=== PATIENT | male | born 1960 | race African-American/Black ===

== ENCOUNTER 2022-02-25 00:28 | Emergency (ER) | payer MEDICARE, OTHER ==
[~2022-02-25] VITALS: Ht 182.9 cm; Wt 88.5 kg
[~2022-02-25 00:28] MED LIST: GABA800T11 PO; HYDR-4384 PO; METF-442 PO; OLME1TAB34 PO
[2022-02-25 00:50] VITALS: BP 150/90
--- NOTE | 2022-02-25 00:58 | NUR ---
BIBS FOR S/I WITH NO PLAN. SEEKING VOLUNTARY ADMISSION TO [facility]. PATIENT ALERT AND ORIENTED X3. AMBULATORY WITH NON LABORED BREATHING IN BED 18 ALL BELONGINGS TAKEN AND PLACED IN LOCKER.
--- NOTE | 2022-02-25 01:05 | NUR ---
COVID SWAB DONE AND SENT TO LAB
--- NOTE | 2022-02-25 01:05 | NUR ---
URINE COLLECTED AND SENT TO LAB
[2022-02-25 01:43] LABS: BILIRUBIN,URINE NEGATIVE (NEGATIVE); COLOR,URINE YELLOW (YELLOW); LEUKOCYTE ESTERASE ,URINE NEGATIVE (NEGATIVE); NITRITE, URINE NEGATIVE (NEGATIVE); PH,URINE 5.5 (5.0-8.0); PROTEIN,URINE >=300 mg/dl (NEGATIVE); UGLUCOSE >=1000 mg/dL (NEGATIVE); UROBILINOGEN,URINE 0.2 EU/dL (0.2)
[2022-02-25 02:01] LABS: BASOPHILS % (AUTO) 0.8 % (0.0-2.0); EOSINOPHILS % (AUTO) 3.1 % (0.0-6.0); HEMATOCRIT 46 % (39-51); HEMOGLOBIN 15.1 g/dL (13.5-17.5); LYMPHOCYTES # (AUTO) 1.7 K/uL (0.8-4.8); LYMPHOCYTES % (AUTO) 30.2 % (20.0-44.0); MEAN CORPUSCULAR HGB CONC 33 g/dl (31.0-36.0); MEAN CORPUSCULAR VOLUME 90 fL (80-96); MONOCYTES # (AUTO) 0.7 K/uL (0.1-1.30); MONOCYTES % (AUTO) 11.8 % (2.0-12.0); NEUTROPHILS # (AUTO) 3.1 K/uL (1.8-8.9); NEUTROPHILS % (AUTO) 54.1 % (43.0-81.0); PLATELET COUNT (AUTO) 191 K/uL (150-450); RED BLOOD CELL COUNT(AUTO) 5.09 MIL/uL (4.5-6.0); WHITE BLOOD COUNT (AUTO) 5.7 K/uL (4.3-11.0)
[2022-02-25 02:01] LABS: BACTERIA,URINE Rare /HPF (None Seen); SQUAMOUS EPITHELIAL CELL,UR Few /HPF (None Seen); WBC,URINE 0-2 /HPF (0-3)
[2022-02-25 02:09] LABS: CALCIUM, SERUM 9.2 mg/dL (8.5-10.1); CARBON DIOXIDE 28 mmol/L (21-32); CHLORIDE 101 mmol/L (98-107); CREATININE 1.3 mg/dL (0.6-1.3); GLUCOSE 267 mg/dL (74-106); POTASSIUM 3.5 mmol/L (3.5-5.1); SODIUM SERUM 136 mmol/L (136-145); UREA NITROGEN, BLOOD 12 mg/dL (7-18)
[2022-02-25 02:15] LABS: ACETAMINOPHEN 0 ug/ml (10-30); ALANINE AMINOTRANSFERASE 19 U/L (12-78); ALBUMIN 3.7 g/dL (3.4-5.0); ALCOHOL, BLOOD < 3 mg/dL (0-0); ALKALINE PHOSPHATASE 78 U/L (46-116); ASPARTATE AMINOTRANSFERASE 20 U/L (15-37); BILIRUBIN,DIRECT 0.1 mg/dL (0.0-0.2); BILIRUBIN,TOTAL 0.4 mg/dL (0.2-1.0); TOTAL PROTEIN, SERUM 7.8 g/dL (6.4-8.2)
--- NOTE | 2022-02-25 03:35 | NUR ---
CLINICAL FAXED TO [facility] INTAKE
--- NOTE | 2022-02-25 04:11 | NUR ---
FOLLOWED UP WITH LAB REGARDING DRUG SCREEN RESULT.
--- NOTE | 2022-02-25 04:11 | NUR ---
Dory rowland in [facility] - 02/25/22 at 0411 by NEGRITO DAWIT
--- NOTE | 2022-02-25 06:00 | NUR ---
ACCEPTED AT [facility] UNDER DR. GIL NUMBER FOR REPORT [phone] UNIT 1 PER GT
--- NOTE | 2022-02-25 06:05 | NUR ---
REPORT GIVEN TO DARRIUS REED
--- NOTE | 2022-02-25 06:08 | NUR ---
[facility] FOR TRANSPORT [phone]
--- NOTE | 2022-02-25 08:46 | NUR ---
[facility] CALLED TO PUSH BACK SENDING PT @ 1300
--- NOTE | 2022-02-25 10:32 | NUR ---
PER MISTI PEGUERO BRENDA INTAKE NO RN AVAIALBLE UNTIL 2300 THAT IS WHEN PT CAN BE ACCEPTED.
--- NOTE | 2022-02-25 12:57 | NUR ---
PT ACCEPTED TO [facility] UNDER DR. SHARMA CALL [phone] [place].
== END 2022-02-25 13:10 ==
LOC: ER 00:50
DX: R45.851 Suicidal ideations (principal); F19.10 Other psychoactive substance abuse, uncomplicated; Z20.822 Contact with and (suspected) exposure to COVID-19; E11.65 Type 2 diabetes mellitus with hyperglycemia; Z79.84 Long term (current) use of oral hypoglycemic drugs; E11.42 Type 2 diabetes mellitus with diabetic polyneuropathy; I11.0 Hypertensive heart disease with heart failure; I50.9 Heart failure, unspecified
CPT/HCPCS: 36415; 80048-TC; 80076-TC; 81001; 85025-TC; C9803; G0480

== ENCOUNTER 2022-10-03 08:17 | Inpatient (IN) | payer MEDICARE, OTHER ==
[~2022-10-03] VITALS: Ht 182.9 cm; Wt 87.5 kg
[2022-10-03] MEDS ORDERED: ASPIRIN 325 MG TABLET PO ONE (08:30)
[2022-10-03] MEDS ORDERED: NITROGLYCERIN 0.4 MG/TAB BOTTLE SL ONE ×2 (08:30→10:00)
--- NOTE | 2022-10-03 08:43 | NUR ---
iv established. 20g L wrist
[2022-10-03] MEDS ORDERED: NITROGLYCERIN 0.4 MG/TAB BOTTLE ONE (08:44)
--- NOTE | 2022-10-03 08:44 | NUR ---
blood drawn and sent to lab
[2022-10-03] MEDS ORDERED: METOPROLOL TARTRATE INJ 5 MG/5 ML AMPUL ONE (08:51)
--- NOTE | 2022-10-03 08:55 | NUR ---
COVID SWAB COLLECTED AND CALLED LAB FOR WOOD FORM BUILDER.
[2022-10-03 09:00] LABS: CARBON DIOXIDE 23 mmol/L (21-32); CHLORIDE 103 mmol/L (98-107); GLUCOSE 272 mg/dL (74-106); POTASSIUM 4.8 mmol/L (3.5-5.1); SODIUM SERUM 135 mmol/L (136-145); UREA NITROGEN, BLOOD 10 mg/dL (7-18)
[2022-10-03] MEDS ORDERED: METOPROLOL TARTRATE INJ 5 MG/5 ML AMPUL IV ONE (09:00)
--- NOTE | 2022-10-03 09:00 | NUR ---
MOVE SHEET SUBMITTED.
--- NOTE | 2022-10-03 09:11 | NUR ---
xray at bedside
[2022-10-03] MEDS ORDERED: LORAZEPAM INJ 2 MG/ML VIAL ONE (09:13)
[2022-10-03] MEDS ORDERED: Medication Not On Formulary EA (Olmesartan Med/Amlodipine/Hctz (Tribenzor 40-10-25 Mg Ta PO SCH (09:30)
[2022-10-03] MEDS ORDERED: LORAZEPAM INJ 2 MG/ML VIAL IV ONE (09:30)
[2022-10-03 09:33] LABS: BASOPHILS % (AUTO) 0.4 % (0.0-2.0); EOSINOPHILS % (AUTO) 1.8 % (0.0-6.0); HEMATOCRIT 44 % (39-51); HEMOGLOBIN 14.2 g/dL (13.5-17.5); LYMPHOCYTES # (AUTO) 1.2 K/uL (0.8-4.8); LYMPHOCYTES % (AUTO) 26.1 % (20.0-44.0); MEAN CORPUSCULAR HGB CONC 33 g/dl (31.0-36.0); MEAN CORPUSCULAR VOLUME 92 fL (80-96); MONOCYTES # (AUTO) 0.5 K/uL (0.1-1.30); MONOCYTES % (AUTO) 10.6 % (2.0-12.0); NEUTROPHILS # (AUTO) 2.8 K/uL (1.8-8.9); NEUTROPHILS % (AUTO) 61.1 % (43.0-81.0); PLATELET COUNT (AUTO) 161 K/uL (150-450); RED BLOOD CELL COUNT(AUTO) 4.76 MIL/uL (4.5-6.0); WHITE BLOOD COUNT (AUTO) 4.5 K/uL (4.3-11.0)
--- NOTE | 2022-10-03 09:54 | NUR ---
patient taken to ct via lima
[2022-10-03] MEDS ORDERED: METOPROLOL TARTRATE INJ 5 MG/5 ML AMPUL IVP PRN (10:00)
[2022-10-03] MEDS ORDERED: IOHEXOL-350 100 ML VIAL IV ONE (10:05)
--- NOTE | 2022-10-03 10:21 | NUR ---
CTA PROCEDURE WELL TOLERATE BY THE PT. PT IS AAOX4, NOT IN RESPIRATORY DISTRESS, V/S STABLE, KEPT RESTED AND COMFORTABLE. WILL CONTINUE TO MONITOR. PT WHEELED BACK TO ER BED 12.
--- NOTE | 2022-10-03 10:31 | NUR ---
bed assigned = 313-2
[2022-10-03] MEDS ORDERED: AMLODIPINE BESYLATE 10 MG TABLET ONE (10:36)
[2022-10-03] MEDS: AMLODIPINE BESYLATE 10 MG TABLET PO SCH (10:49)
[2022-10-03] MEDS: LOSARTAN/HCTZ 50-12.5MG/ 1 EA TABLET PO SCH (11:00)
--- NOTE | 2022-10-03 11:02 | NUR ---
report given to Chris for continuation of care
--- NOTE | 2022-10-03 12:25 | NUR ---
[facility] CALLED SALES OPERATIONS LEAD PAGED.
[2022-10-03] MEDS ORDERED: ONDANSETRON HCL/PF 4 MG/2 ML VIAL IVP PRN (13:00)
[2022-10-03] MEDS: ENOXAPARIN SODIUM 40 MG/0.4 ML DISP.SYRIN SQ SCH ×2 (13:00→13:22)
[2022-10-03] MEDS ORDERED: DEXTROSE 50%-WATER 50 ML DISP.SYRIN IV PRN (13:00)
[2022-10-03] MEDS ORDERED: ACETAMINOPHEN 325 MG TABLET PO PRN (13:00)
--- NOTE | 2022-10-03 13:00 | NUR ---
patient transfered and admitted per acls protocol
[2022-10-03] MEDS: GABAPENTIN 400 MG CAPSULE PO SCH ×2 (13:21→16:41)
--- NOTE | 2022-10-03 13:30 | NUR ---
MECHANICS SUPERVISOR NOTE ADMITTED FROM ER, TRANSPORTED VIA GURNEY ACCOMPANIED BY 2 NURSES. PATIENT TRANSFERRED TO BED AND COMFORT MEASURES PROVIDED. PATIENT IS ALERT AND ORIENTED X 3. ABLE TO MAKE NEEDS KNOWN. PATIENT IS ON ROOM AIR WITH EQUAL AND UNLABORED BREATHING. NO SIGNS OF RESPIRATORY DISTRESS NOTED. NO COMPLAIN OF PAIN OR DISCOMFORT AT THIS TIME. PATIENT HOOKED TO TELE MONITOR READING SR AT 78BPM. COMFORT MEASURES PROVIDED. WITH IV ACCESS ON THE LEFT WRIST G 20, PATENT AND INTACT. PATIENT REFUSED BODY CHECK AND DENIES ANY SKIN ISSUES. HEALTH TEACHING DONE REGARDING ADMISSION AND ADMISSION ORDERS. SAFETY MEASURES PROVIDED WITH BED ON LOWEST LOCKED POSITION, ALARM ON AND CALL LIGHT WITHIN REACH AT ALL TIMES.
[2022-10-03] MEDS: BLOOD SUGAR DIAGNOSTIC 1 EACH STRIP IN SCH ×2 (17:38→21:23)
--- NOTE | 2022-10-03 19:03 | NUR ---
TELECOMMUNICATOR CLOSING NOTE PATIENT IS AWAKE, EATING DINNER; A/O X3 ABLE TO MAKE NEEDS KNOWN. ON ROOM AIR, TOLERATED WELL. NO SOB NOTED, BREATHING EVEN AND UNLABORED. NO S/S OF ACUTE DISTRESS NOTED. ON TELE MONITOR READING SR; HR-82BPM. DENIES ANY PAIN AT THIS TIME. WITH IV ACCESS ON LEFT WRIST G#20, PATENT AND INTACT. ALL DUE MEDS GIVEN. ALL NURSING NEEDS ATTENDED. SAFETY MEASURES IN PLACED; BED IN LOW AND LOCKED POSITION; CALL LIGHT AND TABLE WITHIN EASY REACH. WILL ENDORSE TO UNIVERSITY ADMINISTRATIVE ASSISTANT NURSE FOR CONTINUITY OF CARE.
--- NOTE | 2022-10-03 19:45 | NUR ---
PHYSICIAN GENERAL PRACTICE NOTES ST-101 ON TELE MONITOR,ON BED SLEEPING,AROUSABLE TO VERBAL STIMULI,BREATHING NORMAL,NOT IN ANY FORM OF DISTRESS.SALINE LOCK LEFT WRIST INTACT AND PATENT.DENIES CHEST PAIN AT THE MOMENT.ABLE TO WALK WITH ASSIST.CALL LIGHT IN REACH,NEEDS ANTICIPATED.
[2022-10-03 20:00] VITALS: BP 143/85
[2022-10-03] MEDS: ATORVASTATIN 10 MG TABLET PO SCH (21:23)
--- NOTE | 2022-10-03 21:30 | NUR ---
CREDIT RISK MODELER NOTES ACCU-CHECK BLOOD SUGAR CHECK 289MG/DL,COVERED WITH HUMULIN R 6 UNITS PER SLIDING SCALE,SNACKS PROVIDED AT BEDSIDE.
[2022-10-03] MEDS: INSULIN REGULAR, HUMAN 100 UNIT/ML 3 ML VIAL SQ PRN (21:54)
[2022-10-04] VITALS: BP_SYST 135; BP_DIAS 75; BP_DIAS 79
[2022-10-04 04:00] VITALS: BP 137/69
--- NOTE | 2022-10-04 05:45 | NUR ---
FRUIT OR NUT FARMER NOTES ACCU-CHECK BLOOD SUGAR CHECK 252MG/DL,COVERED WITH HUMULIN R 6 UNITS PER SLIDING SCALE.
[2022-10-04] MEDS: BLOOD SUGAR DIAGNOSTIC 1 EACH STRIP IN SCH ×4 (05:53→21:36)
[2022-10-04] MEDS: INSULIN REGULAR, HUMAN 100 UNIT/ML 3 ML VIAL SQ PRN ×4 (06:14→21:39)
[2022-10-04 07:00] VITALS: BP 152/105
--- NOTE | 2022-10-04 07:04 | NUR ---
HOT PACKER NOTES FAIRLY RESTED AT NIGHT,DENIES CHEST DISCOMFORTS,SALINE LOCK REMAINS PATENT.,FOR PSYCHE EVALUATION FOR DEPRESSION.SOCIAL SERVICE CONSULT FOR HOMELESSNESS.IN NO ACUTE DISTRESS,
[2022-10-04 07:25] LABS: BASOPHILS % (AUTO) 0.6 % (0.0-2.0); EOSINOPHILS % (AUTO) 2.7 % (0.0-6.0); HEMATOCRIT 42 % (39-51); LYMPHOCYTES # (AUTO) 1.2 K/uL (0.8-4.8); LYMPHOCYTES % (AUTO) 28.2 % (20.0-44.0); MEAN CORPUSCULAR HGB CONC 33 g/dl (31.0-36.0); MEAN CORPUSCULAR VOLUME 89 fL (80-96); MONOCYTES # (AUTO) 0.4 K/uL (0.1-1.30); NEUTROPHILS # (AUTO) 2.6 K/uL (1.8-8.9); NEUTROPHILS % (AUTO) 58.5 % (43.0-81.0); PLATELET COUNT (AUTO) 175 K/uL (150-450); RED BLOOD CELL COUNT(AUTO) 4.73 MIL/uL (4.5-6.0); WHITE BLOOD COUNT (AUTO) 4.4 K/uL (4.3-11.0)
--- NOTE | 2022-10-04 07:29 | NUR ---
BOILERMAKER MECHANIC OPENING NOTE Received pt in bed, awake. A/O x 3, able to make needs known. No c/o pain/discomfort at this time. On room air, tolerating well. on media monitor with current reading SR with PVCs-71. IV access in the left wrist #20g, sl. Safety measures implemented: bed in lowest locked position, side rails up x 3, call light and tray table within easy reach. Will continue to monitor.
[2022-10-04 07:36] LABS: CALCIUM, SERUM 9.3 mg/dL (8.5-10.1); CREATININE 1.1 mg/dL (0.6-1.3); MAGNESIUM 1.7 mg/dL (1.8-2.4); PHOSPHORUS 4.9 mg/dL (2.5-4.9); POTASSIUM 3.5 mmol/L (3.5-5.1)
[2022-10-04] MEDS: GABAPENTIN 400 MG CAPSULE PO SCH ×3 (08:42→16:45)
[2022-10-04] MEDS: ASPIRIN 81 MG TAB.CHEW PO SCH (08:42)
[2022-10-04] MEDS: AMLODIPINE BESYLATE 10 MG TABLET PO SCH (08:43)
[2022-10-04] MEDS: LOSARTAN/HCTZ 50-12.5MG/ 1 EA TABLET PO SCH (08:43)
[2022-10-04] MEDS: hydrALAZINE HCL 50 MG TABLET PO SCH ×3 (08:46→16:45)
[2022-10-04] MEDS: risperiDONE 1 MG TABLET PO SCH ×3 (09:00→16:45)
[2022-10-04] MEDS: NITROGLYCERIN 30 GM TUBE TP SCH ×3 (09:00→20:51)
--- NOTE | 2022-10-04 09:45 | NUR ---
RN NOTE Patient verbalized he has headache, Tylenol 650mg po prn given at 0940, will continue to monitor.
[2022-10-04] MEDS ORDERED: INSU100V3 SQ (11:00)
[2022-10-04] MEDS ORDERED: LOSA100T31 PO (11:00)
[2022-10-04] MEDS ORDERED: CARV6.252 PO (11:00)
[2022-10-04] MEDS ORDERED: AMLO-213 PO (11:00)
[2022-10-04] MEDS ORDERED: FURO40TA5 PO (11:00)
[2022-10-04] MEDS ORDERED: INSU10VI3 SQ (11:00)
[2022-10-04] MEDS ORDERED: ATOR20TA PO (11:00)
[2022-10-04] MEDS ORDERED: MIRT-90 PO (11:00)
[2022-10-04] MEDS ORDERED: OLAN10TA3 PO (11:00)
[2022-10-04] MEDS ORDERED: INSU100V7 SQ (11:00)
[2022-10-04] MEDS ORDERED: ASPI-1169 PO (11:00)
[2022-10-04] MEDS: ENOXAPARIN SODIUM 40 MG/0.4 ML DISP.SYRIN SQ SCH (12:34)
[2022-10-04 16:00] VITALS: BP 123/76
--- NOTE | 2022-10-04 18:49 | NUR ---
CLERICAL MANAGER CLOSING NOTE Pt resting in bed. A/O x 3, able to make needs known. No c/o pain/discomfort at this time. On room air, tolerating well. On monitoring engineer with current reading SR-90. IV access in the left wrist #20g, sl. Needs attended. Consented for cardiac cath tomorrow. Safety measures implemented: bed in lowest locked position, side rails up x 3, call light and tray table within easy reach. Will endorse genaro to acquisitions logistics analyst.
[2022-10-04 20:00] VITALS: BP_SYST 130; BP_DIAS 74; BP_DIAS 77
[2022-10-04] MEDS: ATORVASTATIN 10 MG TABLET PO SCH (20:52)
--- NOTE | 2022-10-04 21:03 | NUR ---
2100 patient in bed asleep easily awakened when name spoken he whispers when he is talking and will not look at the nurse he says"let me sleep" he puts his hands into fists and hits the bed took his lipitor and nitro oint patch . will continue to monitor and cluster all that needs to be done for him
--- NOTE | 2022-10-05 04:19 | NUR ---
CLOSING NURSES NOTES; alert and orientated x3 ambulates to the bathroom steady on his legs NPO for scheduled heart Cath in the AM consent and check list done
[2022-10-05] MEDS: BLOOD SUGAR DIAGNOSTIC 1 EACH STRIP IN SCH ×2 (05:49→12:01)
[2022-10-05] MEDS: INSULIN REGULAR, HUMAN 100 UNIT/ML 3 ML VIAL SQ PRN ×2 (05:57→13:29)
--- NOTE | 2022-10-05 07:20 | NUR ---
NEPHROLOGY NURSE OPENING NOTE Received pt in bed, awake. A/O x 3, able to make needs known. No c/o pain/discomfort at this time. On room air, tolerating well. on manager monitoring with current reading SR with PVCs-71. IV access in the left wrist #20g, sl. NPO maintained for cardiac cath and consent done , ambulatory , safety measures implemented: bed in lowest locked position, side rails up x 3, call light and tray table within easy reach. Will continue to monitor.
[2022-10-05 08:19] VITALS: BP_SYST 127; BP_SYST 140; BP_DIAS 63; BP_DIAS 85
--- NOTE | 2022-10-05 08:30 | NUR ---
RN NOTES PATIENT REFUSED TO HAVE THE CARDIAC CATH AND ON NPO AND HE SAID HE DOESNT WANT THE PROCEDURE TO BE DONE AND HE WANTS TO EAT , DR SHAHID AWARE AND OK , DR GRIMM AND JESIKA BARRAZA AWARE . ORDERED DIET AND TRUCKER AWARE ALSO .
[2022-10-05] MEDS ORDERED: ISOSORBIDE DINITRATE (20MG) 20 MG TABLET PO SCH (09:00)
[2022-10-05] MEDS: GABAPENTIN 400 MG CAPSULE PO SCH ×2 (10:16→13:27)
[2022-10-05] MEDS: ASPIRIN 81 MG TAB.CHEW PO SCH (10:16)
[2022-10-05] MEDS: AMLODIPINE BESYLATE 10 MG TABLET PO SCH (10:17)
[2022-10-05] MEDS: hydrALAZINE HCL 50 MG TABLET PO SCH ×2 (10:18→13:22)
[2022-10-05] MEDS: risperiDONE 1 MG TABLET PO SCH (10:23)
[2022-10-05] MEDS: LOSARTAN/HCTZ 50-12.5MG/ 1 EA TABLET PO SCH (10:23)
[2022-10-05] MEDS ORDERED: RISP1TAB7 PO (11:41)
[2022-10-05] MEDS ORDERED: ISOS20TA8 PO (11:41)
[2022-10-05 12:00] VITALS: BP 118/66
[2022-10-05 13:22] VITALS: BP 138/85
[2022-10-05] MEDS: ENOXAPARIN SODIUM 40 MG/0.4 ML DISP.SYRIN SQ SCH (13:27)
--- NOTE | 2022-10-05 16:00 | NUR ---
OPERATOR AND TRUCK DRIVEROFFSET DUPLICATING MACHINE OPERATOR NOTES PATIENT ON BED , A/OX3 , AND VERBALLY RESPONSIVE , ON ROOM AIR WITH NO SOB OR DISTRESS NOTED , NO C/ O OF PAIN AND DISCOMFORT, ALL DUE MEDS GIVEN ORDERED , PATIENT WAS SEEN BY DR BARRAZA AND WITH ORDER FOR DISCHARGE TO THE FACILITY AT [facility] , DISCHARGE PAPERS PREPARED AND INSTRUCTIONS PROVIDED TO THE PATIENT AND REPORT PROVIDED TO KITA RN AT FACILITY , ALL BELONGINGS WERE TAKEN AND FORM WAS SIGNED , SKIN IS INTACT , REPORT WAS GIVEN TO THE EMT AND PATIENT LEFT WITH NO C/O OF PAIN AND DISCOMFORT AND IN A STABLE CONDITION IV ACCES , PURCHASING EXPEDITOR , ID BADGE REMOVED , LEFT VIA GURNEY WITH EMT ,
== END 2022-10-05 15:51 | DRG 303 ==
LOC: ER 08:23 → TELE 10:35
PROVIDERS: ADMIT Nurse Practitioner Acute Care; ATTEND Nurse Practitioner Acute Care
DX: I25.10 Atherosclerotic heart disease of native coronary artery without angina pectoris (principal); E11.21 Type 2 diabetes mellitus with diabetic nephropathy; F32.A Depression, unspecified; Z98.1 Arthrodesis status; I10 Essential (primary) hypertension; Z79.4 Long term (current) use of insulin; Z79.82 Long term (current) use of aspirin; Z79.899 Other long term (current) drug therapy; E11.65 Type 2 diabetes mellitus with hyperglycemia; F29 Unspecified psychosis not due to a substance or known physiological condition; F19.90 Other psychoactive substance use, unspecified, uncomplicated; I25.2 Old myocardial infarction; Z95.5 Presence of coronary angioplasty implant and graft; Z91.148 Patient's other noncompliance with medication regimen for other reason; Z63.4 Disappearance and death of family member
CPT/HCPCS: 36415; 71045-TC; 75574; 80048-TC; 80061-TC; 82962-TC; 83735-TC; 83880; 84100-TC; 84484-TC; 85025-TC; 87081-TC; 93307-TC; 97112-TC; 97116-TC; C9803; G0378; J1650; J1815; J2060; J3490; Q9967

== ENCOUNTER 2022-10-27 06:55 | Inpatient (IN) | payer MEDICARE, OTHER ==
[~2022-10-27] VITALS: Ht 182.9 cm; Wt 90.7 kg
[~2022-10-27 06:55] MED LIST changes: +AMLO-213 PO; +ASPI-1169 PO; +ATOR20TA PO; +CARV6.252 PO; +FURO40TA5 PO; -HYDR-4384 PO; +INSU100V3 SQ; +INSU100V7 SQ; +INSU10VI3 SQ; +ISOS20TA8 PO; +LOSA100T31 PO; -METF-442 PO; -OLME1TAB34 PO; +RISP1TAB7 PO
--- NOTE | 2022-10-27 07:00 | NUR ---
BIBS FOR DEPRESSION. PATIENT WITH THOUGHTS OF HARMING SELF RECENTLY BUT NO SPECIFIC PLANS OR ATTEMPTS. A/O X 3, ABLE TO MAKE NEEDS KNOWN, TOLERATING WELL ON ROOM AIR.
--- NOTE | 2022-10-27 08:22 | NUR ---
COVID SWAB COLLECTED AND SENT TO LAB
[2022-10-27 09:22] LABS: BASOPHILS % (AUTO) 0.7 % (0.0-2.0); EOSINOPHILS % (AUTO) 4.4 % (0.0-6.0); HEMATOCRIT 48 % (39-51); HEMOGLOBIN 15.5 g/dL (13.5-17.5); LYMPHOCYTES # (AUTO) 1.1 K/uL (0.8-4.8); LYMPHOCYTES % (AUTO) 32.1 % (20.0-44.0); MEAN CORPUSCULAR HGB CONC 32 g/dl (31.0-36.0); MEAN CORPUSCULAR VOLUME 91 fL (80-96); MONOCYTES # (AUTO) 0.5 K/uL (0.1-1.30); MONOCYTES % (AUTO) 14.5 % (2.0-12.0); NEUTROPHILS # (AUTO) 1.7 K/uL (1.8-8.9); NEUTROPHILS % (AUTO) 48.3 % (43.0-81.0); PLATELET COUNT (AUTO) 171 K/uL (150-450); WHITE BLOOD COUNT (AUTO) 3.4 K/uL (4.3-11.0)
[2022-10-27 09:34] LABS: ALANINE AMINOTRANSFERASE 25 U/L (12-78); ALCOHOL, BLOOD < 3 mg/dL (0-0); ALKALINE PHOSPHATASE 68 U/L (46-116); ASPARTATE AMINOTRANSFERASE 27 U/L (15-37); BILIRUBIN,TOTAL 0.5 mg/dL (0.2-1.0); CALCIUM, SERUM 9.2 mg/dL (8.5-10.1); CARBON DIOXIDE 26 mmol/L (21-32); CHLORIDE 103 mmol/L (98-107); GLUCOSE 148 mg/dL (74-106); POTASSIUM 4.2 mmol/L (3.5-5.1); SODIUM SERUM 137 mmol/L (136-145); TOTAL PROTEIN, SERUM 7.6 g/dL (6.4-8.2); UREA NITROGEN, BLOOD 18 mg/dL (7-18)
[2022-10-27 09:44] LABS: BILIRUBIN,URINE NEGATIVE (NEGATIVE); COLOR,URINE YELLOW (YELLOW); LEUKOCYTE ESTERASE ,URINE NEGATIVE (NEGATIVE); NITRITE, URINE NEGATIVE (NEGATIVE); PROTEIN,URINE 3+ mg/dl (NEGATIVE); UGLUCOSE TRACE mg/dL (NEGATIVE)
[2022-10-27 09:47] LABS: BACTERIA,URINE Rare /HPF (None Seen); RBC,URINE 0-2 /HPF (0-2); SQUAMOUS EPITHELIAL CELL,UR Few /HPF (None Seen); WBC,URINE 0-2 /HPF (0-3)
[2022-10-27 10:17] LABS: ALBUMIN 3.7 g/dL (3.4-5.0)
[2022-10-27] MEDS ORDERED: ESCI10TA PO (11:38)
[2022-10-27] MEDS ORDERED: ISOS60TA72 PO (11:38)
[2022-10-27] MEDS ORDERED: FOLI0.4T6 PO (11:38)
[2022-10-27] MEDS ORDERED: GABA300C PO (11:38)
[2022-10-27] MEDS ORDERED: TEMA15CA PO (11:38)
[2022-10-27] MEDS ORDERED: PANT40TA49 PO (11:38)
[2022-10-27] MEDS ORDERED: METF-442 PO (11:38)
[2022-10-27] MEDS ORDERED: IBUP-1957 PO (12:13)
[2022-10-27] MEDS ORDERED: DICY20TA11 PO (12:13)
[2022-10-27] MEDS ORDERED: METH-647 PO (12:13)
[2022-10-27] MEDS ORDERED: ACET-868 PO (12:13)
[2022-10-27] MEDS ORDERED: MAGN400O6 PO (12:13)
[2022-10-27] MEDS ORDERED: ONDA4TAB5 PO (12:13)
[2022-10-27] MEDS ORDERED: MAG30ORA PO (12:13)
[2022-10-27] MEDS ORDERED: THIA100T68 PO (12:13)
[2022-10-27] MEDS ORDERED: LOPE2TAB25 PO (12:13)
[2022-10-27] MEDS ORDERED: INSU100V11 SQ (12:13)
[2022-10-27] MEDS ORDERED: DIAZ10TA4 PO (12:13)
--- NOTE | 2022-10-27 13:20 | NUR ---
olga, cuffer at bedside for eval.
--- NOTE | 2022-10-27 13:29 | NUR ---
BED ASSIGNED 213.A, ADMITTING AWARE
--- NOTE | 2022-10-27 13:55 | NUR ---
REPORT GIVEN TO DARRIUS QUEZADA
--- NOTE | 2022-10-27 15:15 | NUR ---
ADMITTED A 62 Y/O MALE FROM [facility]. ON 5150 HOLD FOR DTS ,PER HOLD PATIENT STATED "I LOST MY AND WANT TO ". . PATIENT ADMITTING DX. DEPRESSION AND MEDICAL HX OF HTN ,FIBROMYALGIA ,POLYNEUROPATHY ,HEART FAILURE , TYPE 2 DIABETES ,DIABETIC NEUROPATHY ,SPINAL STENOSIS ,ATHEROSCLEROTIC HEART DISEASE ,ANGINA PECTORIS ,GERD ,MIGRAINE ,INSOMNIA ,TINNITUS ,ALCOHOL ABUSE .POSITIVE FOR COCAINE ,CANNABINOID AND BENZO . NO AGITATION AT THIS TIME. HEAD TO TOE ASSESSMENT DONE. PATIENT UNABLE TO SIGN PAPER WORKS. NO SOB, NO ACUTE DISTRESS, BREATHING EVEN AND UNLABORED, NO S/S OF PAIN AND DISCOMFORT. PATIENT IS UNDER THE CARE OF DR. ARIAS AND DR. MARION . BELONGINGS COLLECTED FOR CONTRABAND CHECK. NOTIFIED TO RECONCILE MEDICATION. KEPT CLEAN, DRY AND COMFORTABLE. WILL CONTINUE TO MONITOR Q15 MNINS FOR SAFETY.
[2022-10-27] MEDS ORDERED: BLOOD SUGAR DIAGNOSTIC 1 EACH STRIP IN ONE (15:30)
[2022-10-27] MEDS ORDERED: MAGNESIUM HYDROXIDE 30 ML UDC PO PRN (15:30)
[2022-10-27] MEDS ORDERED: MAG HYDROX/AL HYDROX/SIMETH 30 ML UDC PO PRN (15:30)
--- NOTE | 2022-10-27 15:34 | NUR ---
PATIENT TRANSFERED TO 213-1, ALL CARE ENDORSED TO DARRIUS QUEZADA
[2022-10-27 15:58] VITALS: BP 156/88
--- NOTE | 2022-10-27 16:26 | NUR ---
Dr. Cummins made aware of the admission and with orders and Dr. Hunter made aware of the admission and made aware to reconcile meds and ordered accu check AC and HS and with mild regular insulin sliding scale.
[2022-10-27] MEDS ORDERED: DEXTROSE 50%-WATER 50 ML DISP.SYRIN IV PRN (16:30)
[2022-10-27] MEDS: BLOOD SUGAR DIAGNOSTIC 1 EACH STRIP IN SCH ×2 (17:35→21:19)
[2022-10-27] MEDS: INSULIN REGULAR, HUMAN 100 UNIT/ML 3 ML VIAL SQ PRN ×2 (17:36→21:20)
--- NOTE | 2022-10-27 19:10 | NUR ---
Rn opening notes Received Pt in the room. Pt is laying in bed comfortably. Pt is alert and orientedX3, calm, organized and cooperative. On room air. no SOB. No S/S of distress noted. Ambulates with a steady gait. Snacks is offered. safety precautions is maintained. will continue to monitor Q 15 mins checks for safety and behavior.
[2022-10-27] MEDS ORDERED: HYDR-3980 PO (19:22)
--- NOTE | 2022-10-27 19:30 | NUR ---
GPS RN NOTE, PATIENT NEEDS A MEDICATION RECONCILIATION. PAGED JULIO DIXON NP AND INFORMED HIM OF MY FINDINGS. JULIO DIXON NP ONLY GAVE AN ORDER FOR NORCO 10-325 1 TAB PO Q8HR PRN. ALL ORDERS NOTED AND CARRIED OUT WILL CONTINUE TO MONITOR THIS PATIENT WITH THE HELP OF STAFF.
[2022-10-27 20:00] VITALS: BP 156/111
--- NOTE | 2022-10-27 20:00 | NUR ---
RN notes Pt is having pain and requesting pain med. Pt also informed that Pt is taking [place] 10mg/1 tab at home. Informed and notify Dr. Clancy. ordered Norcon 10mg/1 tab/Q 8prn as ordered for pain. Charge nurse is aware and informed. order carried out.
[2022-10-27] MEDS: HYDROCODONE/APAP 10/325MG TABLET PO PRN (21:29)
--- NOTE | 2022-10-27 21:29 | NUR ---
RN notes Pt is compaining of neck and generalized pain. administered norco/1 tab/po as ordered for pain. VS is stable. safety precautions is maintained. Will continue to monitor.
[2022-10-27] MEDS: TEMAZEPAM 7.5 MG CAPSULE PO PRN (21:49)
--- NOTE | 2022-10-27 21:50 | NUR ---
RN notes Pt is having insomnia and requesting a sleeping pill. administered restoril/1 tab/po as ordered for sleeping. safety precautions is maintianed. will continue to monitor.
--- NOTE | 2022-10-28 06:40 | NUR ---
RN notes Pt refuses am labs. explained risks and benefits. Pt keep refusing and agitated easily. charge nurse is aware and informed.
[2022-10-28] MEDS: BLOOD SUGAR DIAGNOSTIC 1 EACH STRIP IN SCH ×4 (07:55→22:11)
[2022-10-28 08:00] VITALS: BP 151/92
[2022-10-28] MEDS: INSULIN REGULAR, HUMAN 100 UNIT/ML 3 ML VIAL SQ PRN ×4 (08:24→21:43)
[2022-10-28] MEDS: HYDROCODONE/APAP 10/325MG TABLET PO PRN (11:26)
--- NOTE | 2022-10-28 11:26 | NUR ---
RN NOTE PATIENT COMPLAINS OF GENERALIZED PAIN WITH PAIN SCALE OF 7/10. NORCO PRN ADMINISTERED. WILL CONTINUE TO MONITOR THE PATIENT.
[2022-10-28] MEDS: GABAPENTIN 300 MG CAPSULE PO SCH ×2 (12:09→16:24)
[2022-10-28] MEDS ORDERED: IBUPROFEN 800 MG TABLET PO PRN (15:30)
[2022-10-28] MEDS ORDERED: METHOCARBAMOL (500MG) 500 MG TABLET PO PRN (15:30)
[2022-10-28] MEDS: OLANZAPINE 5 MG TABLET PO SCH (15:41)
[2022-10-28] MEDS: ESCITALOPRAM OXALATE (10 MG) 10 MG TABLET PO SCH (15:41)
[2022-10-28 16:00] VITALS: BP 154/84
[2022-10-28] MEDS ORDERED: IBUPROFEN 400 MG TABLET PO PRN (16:00)
[2022-10-28] MEDS: ASPIRIN 81 MG TAB.CHEW PO SCH (16:10)
[2022-10-28] MEDS: LOSARTAN POTASSIUM 50 MG TABLET PO SCH (16:12)
[2022-10-28] MEDS: FOLIC ACID 1 MG TABLET PO SCH (16:13)
[2022-10-28] MEDS: ISOSORBIDE MONONITRATE (30MG) 30 MG TAB.SR.24H PO SCH (16:13)
[2022-10-28] MEDS: PANTOPRAZOLE 40 MG TABLET.DR PO SCH (16:14)
[2022-10-28] MEDS: THIAMINE HCL 100 MG TABLET PO SCH (16:14)
[2022-10-28] MEDS: AMLODIPINE BESYLATE 10 MG TABLET PO SCH (16:14)
[2022-10-28] MEDS: CARVEDILOL 6.25 MG TABLET PO SCH (16:15)
[2022-10-28 16:34] LABS: CREATININE 1.3 mg/dL (0.6-1.3)
[2022-10-28] MEDS ORDERED: GABAPENTIN 300 MG CAPSULE PO SCH (17:00)
[2022-10-28] MEDS: METFORMIN 500 MG TABLET PO SCH (17:00)
--- NOTE | 2022-10-28 18:43 | NUR ---
RN- CLOSING NOTES PATIENT AWAKE, RESTING IN BED, BREATHING EVEN AND NON LABORED WITH NO S/S OF DISTRESS. PATIENT IS COOPERATIVE, ANXIOUS, DEPRESSED, AND GUARDED. PATIENT IS MEDICATION COMPLIANT. DENIES SI/HI AT THIS TIME. WILL CONTINUE TO MONITOR Q 15 MINUTES FOR SAFETY AND BEHAVIOR.
[2022-10-28 20:00] VITALS: BP 150/74
[2022-10-28 20:36] VITALS: BP 150/74
[2022-10-28] MEDS: INSULIN GLARGINE, 100 UNIT/ML CARTRIDGE SQ SCH (21:44)
[2022-10-29] MEDS: BLOOD SUGAR DIAGNOSTIC 1 EACH STRIP IN SCH ×2 (07:58→12:13)
[2022-10-29 08:00] VITALS: BP 136/58
[2022-10-29] MEDS: LOSARTAN POTASSIUM 50 MG TABLET PO SCH (08:25)
[2022-10-29] MEDS: GABAPENTIN 300 MG CAPSULE PO SCH ×3 (08:26→16:27)
[2022-10-29] MEDS: CARVEDILOL 6.25 MG TABLET PO SCH ×2 (08:26→16:27)
[2022-10-29] MEDS: ISOSORBIDE MONONITRATE (30MG) 30 MG TAB.SR.24H PO SCH ×2 (08:26→08:29)
[2022-10-29] MEDS: ASPIRIN 81 MG TAB.CHEW PO SCH (08:27)
[2022-10-29] MEDS: FOLIC ACID 1 MG TABLET PO SCH (08:27)
[2022-10-29] MEDS: METFORMIN 500 MG TABLET PO SCH ×2 (08:27→16:27)
[2022-10-29] MEDS: THIAMINE HCL 100 MG TABLET PO SCH (08:27)
[2022-10-29] MEDS: PANTOPRAZOLE 40 MG TABLET.DR PO SCH (08:28)
[2022-10-29] MEDS: AMLODIPINE BESYLATE 10 MG TABLET PO SCH (08:28)
[2022-10-29] MEDS: OLANZAPINE 5 MG TABLET PO SCH (08:28)
[2022-10-29] MEDS: ESCITALOPRAM OXALATE (10 MG) 10 MG TABLET PO SCH (08:28)
[2022-10-29] MEDS: INSULIN REGULAR, HUMAN 100 UNIT/ML 3 ML VIAL SQ PRN ×2 (09:22→18:46)
[2022-10-29] MEDS: ACETAMINOPHEN 325 MG TABLET PO PRN (09:36)
[2022-10-29] MEDS: HYDROCODONE/APAP 10/325MG TABLET PO PRN ×3 (09:40→20:46)
--- NOTE | 2022-10-29 09:44 | NUR ---
NURSE NOTE: PT C/O PAIN AT THIS TIME. IBUPROPHEN ADMIN ORDERED. PT BLAYNE WELL. WILL CONT TO MONITOR.
--- NOTE | 2022-10-29 10:44 | NUR ---
NURSE NOTE: PT STATED THAT HE FEELS BETTER. WILL CONT TO MONITOR.
--- NOTE | 2022-10-29 12:13 | NUR ---
NURSE NOTE: PT C/O PAIN AT LEVEL 9/10. REQUESTED NORCO AT THIS TIME. NORCO ADMINISTERED ORDERED. PT BLAYNE WELL. WILL CONT TO MONITOR.
--- NOTE | 2022-10-29 13:13 | NUR ---
NURSE NOTE: PT SLEEPING AT THIS TIME. NORCO EFFECTIVE. NO SIGNS OF PAIN. WILL CONT TO MONITOR.
[2022-10-29] MEDS ORDERED: DEXTROSE 50%-WATER 50 ML DISP.SYRIN IV PRN (13:30)
[2022-10-29 16:00] VITALS: BP 153/80
[2022-10-29] MEDS: BLOOD SUGAR DIAGNOSTIC 1 EACH STRIP VI SCH ×2 (17:41→22:03)
--- NOTE | 2022-10-29 20:47 | NUR ---
RN NOTE PT COMPLAINED OF GENERAL PAIN 01/10. ADMINISTERED NORCO 10-325 MG FOR SEVERE PAIN ORDERED. ALL NEEDS MET AT THIS TIME.
[2022-10-29 21:56] VITALS: BP 141/92
[2022-10-29] MEDS: *INSULIN REGULAR(HUMULIN R)HUM 100 UNIT/ML VIAL SQ PRN (22:05)
[2022-10-29] MEDS: INSULIN GLARGINE, 100 UNIT/ML CARTRIDGE SQ SCH (22:06)
[2022-10-29] MEDS: TEMAZEPAM 7.5 MG CAPSULE PO PRN (22:10)
--- NOTE | 2022-10-29 22:17 | NUR ---
RN NOTE PT REQUESTED SLEEPING PILL. ADMINISTERED RESTORIL 7.5 MG FOR INSOMNIA ORDERED. MADE COMFORTABLE IN BED. ALL NEEDS MET AT THIS TIME.
--- NOTE | 2022-10-30 07:09 | NUR ---
GPS RN NOTE RECEIVED PATIENT SLEEPING IN BED, NO S/S OF DISTRESS OR DISCOMFORT. PATIENT RESTING WELL, NO BEHAVIOR NOTED AT THIS TIME, A/Ox3. NO S/S OF RESPIRATORY DISTRESS. WILL CONTINUE TO MONITOR.
[2022-10-30] MEDS: BLOOD SUGAR DIAGNOSTIC 1 EACH STRIP VI SCH ×4 (07:30→21:52)
[2022-10-30 08:00] VITALS: BP_SYST 118; BP_SYST 125; BP_DIAS 63; BP_DIAS 74
--- NOTE | 2022-10-30 08:00 | NUR ---
RN NOTE PATIENT REFUSED 0730 ACCUCHECK. RISKS AND BENEFITS EXPLAINED.
[2022-10-30] MEDS: THIAMINE HCL 100 MG TABLET PO SCH (08:37)
[2022-10-30] MEDS: METFORMIN 500 MG TABLET PO SCH ×2 (08:37→16:13)
[2022-10-30] MEDS: ASPIRIN 81 MG TAB.CHEW PO SCH (08:37)
[2022-10-30] MEDS: PANTOPRAZOLE 40 MG TABLET.DR PO SCH (08:37)
[2022-10-30] MEDS: FOLIC ACID 1 MG TABLET PO SCH (08:37)
[2022-10-30] MEDS: GABAPENTIN 300 MG CAPSULE PO SCH ×3 (08:37→16:13)
[2022-10-30] MEDS: ESCITALOPRAM OXALATE (10 MG) 10 MG TABLET PO SCH (08:37)
[2022-10-30] MEDS: CARVEDILOL 6.25 MG TABLET PO SCH ×2 (08:44→16:14)
[2022-10-30] MEDS: ISOSORBIDE MONONITRATE (30MG) 30 MG TAB.SR.24H PO SCH (08:45)
[2022-10-30] MEDS: AMLODIPINE BESYLATE 10 MG TABLET PO SCH (08:45)
[2022-10-30] MEDS: LOSARTAN POTASSIUM 50 MG TABLET PO SCH (08:45)
[2022-10-30] MEDS: HYDROCODONE/APAP 10/325MG TABLET PO PRN ×2 (08:49→21:52)
--- NOTE | 2022-10-30 09:00 | NUR ---
RN NOTE PATIENT REQUESTED PRN NARCO FOR PAIN, 01/10. ADMINISTERED.
--- NOTE | 2022-10-30 10:40 | NUR ---
MARTELL Clinical Note: Pt placed on a 5150 hold for danger to himself. Pt has been feeling depressed and has lost his . Pt is currently homeless. Pt will need placement. Pt does not have supportive contact. MARTELL will work with the MD and pt to help coordinate appropriate discharge.
--- NOTE | 2022-10-30 10:40 | NUR ---
MARTELL Initial Discharge Note: Pt is currently homeless. Pt will need placement. Pt does not have supportive contact. SW will work with the MD and pt to help coordinate appropriate discharge.
--- NOTE | 2022-10-30 12:11 | NUR ---
RN NOTE PATIENT ALLOWED ACCUCHECK, BUT REFUSED INSULIN COVERAGE.
[2022-10-30] MEDS: LORAZEPAM 0.5 MG TABLET PO PRN (13:43)
[2022-10-30 16:09] VITALS: BP 132/81
[2022-10-30] MEDS: INSULIN REGULAR, HUMAN 100 UNIT/ML 3 ML VIAL SQ PRN (17:36)
--- NOTE | 2022-10-30 18:50 | NUR ---
GPS RN CLOSING NOTE PATIENT AWAKE, IN DINING ROOM WATCHING TV, NO S/S OF DISTRESS OR DISCOMFORT. NO BEHAVIOR NOTED THROUGHOUT SHIFT, A/Ox3. NO S/S OF RESPIRATORY DISTRESS. WILL CONTINUE TO MONITOR.
--- NOTE | 2022-10-30 19:30 | NUR ---
RN OPENING NOTES RECEIVED PATIENT IN THE ACTIVITY ROOM WATCHING TV. PATIENT IS A/O TIMES 3. ABLE TO MAKE NEEDS KNOWN. NO PAIN NOTED. NO SOB NOTED. NO DISTRESS NOTED. ALL NEEDS ATTENDED. AMBULATORY AND BRP. NO SI/HI NOTED. COOPERATIVE. ALL SAFETY MEASURES IN PLACE. BED LOCKED IN THE LOWEST POSITION. TABLE IN EASY REACH. SIDE RAILS UP TIMES 2. WILL CONTINUE TO MONITOR FOR SAFETY EVERY 15 MINUTES.
[2022-10-30 20:16] VITALS: BP 143/83
[2022-10-30] MEDS: OLANZAPINE 5 MG TABLET PO SCH (21:42)
--- NOTE | 2022-10-30 21:52 | NUR ---
RN NOTES PRN NORCO 10/325 MG 1 CAP GIVEN PER PATIENT'S REQUEST AT 2152 FOR GENERALIZED PAIN. WILL ASSESS PAIN IN 1 HOUR.
[2022-10-30] MEDS: INSULIN GLARGINE, 100 UNIT/ML CARTRIDGE SQ SCH (21:53)
[2022-10-30] MEDS: *INSULIN REGULAR(HUMULIN R)HUM 100 UNIT/ML VIAL SQ PRN (21:55)
--- NOTE | 2022-10-30 22:00 | NUR ---
RN NOTES BLOOD SUGAR CHECKED FOR 2199 NOTED RESULT OF 180. INSULIN LANTUS GIVEN 22 UNITS PER ORDER. REGULAR INSULIN GIVEN 3 UNITS PER ORDER AND SLIDING SCALE.
[2022-10-30] MEDS: TEMAZEPAM 7.5 MG CAPSULE PO PRN (22:09)
--- NOTE | 2022-10-30 22:10 | NUR ---
RN NOTES PRN RESTORIL GIVEN AT 2209 PER PATIENT'S REQUEST FOR INSOMNIA. WILL REASSESS IN 1 HOUR.
[2022-10-31] MEDS: BLOOD SUGAR DIAGNOSTIC 1 EACH STRIP VI SCH ×4 (06:23→20:50)
[2022-10-31] MEDS: INSULIN REGULAR, HUMAN 100 UNIT/ML 3 ML VIAL SQ PRN ×3 (06:24→18:27)
--- NOTE | 2022-10-31 06:38 | NUR ---
RN NOTES BLOOD SUGAR CHECKED NOTED 199 RESULT. 3 UNITS INSULIN GIVEN.
--- NOTE | 2022-10-31 06:46 | NUR ---
RN CLOSING NOTES PATIENT IS AWAKE IN BED. PATIENT IS A/O TIMES 3. ABLE TO MAKE NEEDS KNOWN. NO PAIN NOTED. NO SOB NOTED. NO DISTRESS NOTED. ALL NEEDS ATTENDED. ALL DUE MEDS GIVEN ORDERED. AMBULATORY AND BRP. NO SI/HI NOTED. NO BEHAVIORAL ISSUE NOTED. COOPERATIVE. ALL SAFETY MEASURES IN PLACE. BED LOCKED IN THE LOWEST POSITION. TABLE IN EASY REACH. SIDE RAILS UP TIMES 2. WILL ENDORSE FOR PATITO.
[2022-10-31 08:00] VITALS: BP 158/95
[2022-10-31] MEDS: PANTOPRAZOLE 40 MG TABLET.DR PO SCH (08:10)
[2022-10-31] MEDS: METFORMIN 500 MG TABLET PO SCH ×2 (09:00→16:38)
[2022-10-31] MEDS: ESCITALOPRAM OXALATE (10 MG) 10 MG TABLET PO SCH (09:00)
[2022-10-31] MEDS: ISOSORBIDE MONONITRATE (30MG) 30 MG TAB.SR.24H PO SCH (09:00)
[2022-10-31] MEDS: AMLODIPINE BESYLATE 10 MG TABLET PO SCH (09:01)
[2022-10-31] MEDS: CARVEDILOL 6.25 MG TABLET PO SCH ×2 (09:01→16:38)
[2022-10-31] MEDS: GABAPENTIN 300 MG CAPSULE PO SCH ×3 (09:01→16:37)
[2022-10-31] MEDS: THIAMINE HCL 100 MG TABLET PO SCH (09:02)
[2022-10-31] MEDS: FOLIC ACID 1 MG TABLET PO SCH (09:02)
[2022-10-31] MEDS: ASPIRIN 81 MG TAB.CHEW PO SCH (09:02)
[2022-10-31] MEDS: LOSARTAN POTASSIUM 50 MG TABLET PO SCH (09:02)
--- NOTE | 2022-10-31 10:27 | NUR ---
SW Referral: MARTELL sent clinicals to [facility] to orlando Clarke ([phone]) for placement. SW sent clinicals to [facility], progress notes, and medication list.
--- NOTE | 2022-10-31 13:57 | NUR ---
SW Contact: [facility] ([phone]) who stated pt is accepted.
[2022-10-31 16:00] VITALS: BP 138/78
[2022-10-31] MEDS: HYDROCODONE/APAP 10/325MG TABLET PO PRN (19:55)
[2022-10-31 20:08] VITALS: BP 133/83
[2022-10-31] MEDS: OLANZAPINE 5 MG TABLET PO SCH (20:47)
--- NOTE | 2022-10-31 21:00 | NUR ---
RN NOTES PATIENT ZYPREXA 5MG MEDICATIONS ENTERED MANUALLY BECAUSE THE BARCODE DOES NOT WORK.CHARGE NURSED ().
[2022-10-31] MEDS: TEMAZEPAM 7.5 MG CAPSULE PO PRN (21:01)
[2022-10-31] MEDS: INSULIN GLARGINE, 100 UNIT/ML CARTRIDGE SQ SCH (21:10)
[2022-11-01] MEDS: BLOOD SUGAR DIAGNOSTIC 1 EACH STRIP VI SCH ×4 (07:56→21:38)
[2022-11-01 08:00] VITALS: BP 150/96
[2022-11-01] MEDS: PANTOPRAZOLE 40 MG TABLET.DR PO SCH (08:13)
[2022-11-01] MEDS: FOLIC ACID 1 MG TABLET PO SCH (08:29)
[2022-11-01] MEDS: ASPIRIN 81 MG TAB.CHEW PO SCH (08:29)
[2022-11-01] MEDS: ISOSORBIDE MONONITRATE (30MG) 30 MG TAB.SR.24H PO SCH (08:29)
[2022-11-01] MEDS: METFORMIN 500 MG TABLET PO SCH ×2 (08:29→16:45)
[2022-11-01] MEDS: ESCITALOPRAM OXALATE (10 MG) 10 MG TABLET PO SCH (08:29)
[2022-11-01] MEDS: THIAMINE HCL 100 MG TABLET PO SCH (08:29)
[2022-11-01] MEDS: GABAPENTIN 300 MG CAPSULE PO SCH ×3 (08:29→16:45)
[2022-11-01] MEDS: LOSARTAN POTASSIUM 50 MG TABLET PO SCH (08:30)
[2022-11-01] MEDS: CARVEDILOL 6.25 MG TABLET PO SCH ×2 (08:30→16:46)
[2022-11-01] MEDS: AMLODIPINE BESYLATE 10 MG TABLET PO SCH (08:30)
[2022-11-01] MEDS: INSULIN REGULAR, HUMAN 100 UNIT/ML 3 ML VIAL SQ PRN ×2 (12:41→22:01)
[2022-11-01] MEDS: HYDROCODONE/APAP 10/325MG TABLET PO PRN ×2 (13:17→23:53)
[2022-11-01 16:00] VITALS: BP 142/90
--- NOTE | 2022-11-01 17:44 | NUR ---
RN-NOTES PATIENT IS VISIBLE IN THE UNIT COMPLIANT WITH P.O MEDICATIONS. PATIENT ABLE TO MAKE NEEDS KNOWN TO THE STAFF AND ATTENDED GROUPS. AMBULATORY STEADY GAIT. ALL NEEDS ATTENDED AND ANTICIPATED. WILL CONT. MONITORING FOR SAFETY AND BEHAVIOR. WILL ENDORSE TO INCOMING SHIFT /NURSE FOR THE CONTINUITY OF CARE. Addendum: 11/01/22 at 1830 by ORALIA CASTRO RN PATIENT BS WAS 139MG/DL, REFUSED COVERAGE OF 2 UNITS REGULAR INSULIN. STATED" I'M OK IT'S NOT THAT MUCH, I DON'T WANT THE INSULIN". OFFERED X3
--- NOTE | 2022-11-01 20:35 | NUR ---
GPS RN NOTE, PATIENT VITAL SIGNS ARE FOLLOWS B/P 159/93, TEMP 97.9, RESPIRATIONS 16, PULSE 70, SPO2% 96%. PATIENT IS REQUESTING MEDICATION TO HELP LOWER HIS BLOOD PRESSURE AT THIS TIME. PAGED [facility] AND INFORMED CRYSTAL THOMPSON NP OF MY FINDINGS. CRYSTAL THOMPSON NP ORDERED CLONIDINE 0.1MG PO Q8HR PRN IF SYSTOLIC BLOOD PRESSURE IS GREATER THAT 155MMHG OR IF DIASTOLIC BLOOD PRESSURE IS GREATER THAN 100MMHG. ALL ORDERS NOTED AND CARRIED OUT. WILL CONTINUE TO MONITOR THIS PATIENT WITH THE HELP OF STAFF.
--- NOTE | 2022-11-01 20:45 | NUR ---
ACTIVITIES COUNSELOR NOTED RECEIVED PATIENT IN THE ACTIVITY ROOM WATCHING TV. PATIENT IS A/O TIMES 3. ABLE TO MAKE NEEDS KNOWN. NO PAIN NOTED. BREATHING NON-LABORED. NO DISTRESS NOTED. NO C/O PAIN OR DISCOMFORT AT THIS TIME. AMBULATORY AND BRP.DENIES NO SI/HI AT THIS TIME. PATIENT IS COOPERATIVE AND MED COMPLIANT.PATIENT C/O OF BLOOD PRESSURE 159/93.TEXTED DR SONG AND ORDERED CLONIDINE 0.5MG . ALL SAFETY MEASURES IN PLACE. BED LOCKED IN THE LOWEST POSITION. TABLE IN EASY REACH. SIDE RAILS UP TIMES 2. WILL CONTINUE TO MONITOR FOR EVERY 15 MINUTES FOR SAFETY AND BEHAVIOR.
[2022-11-01] MEDS: OLANZAPINE 5 MG TABLET PO SCH (21:24)
[2022-11-01] MEDS: CLONIDINE HCL 0.1 MG TABLET PO PRN (21:24)
[2022-11-01] MEDS: TEMAZEPAM 7.5 MG CAPSULE PO PRN (21:32)
--- NOTE | 2022-11-01 21:32 | NUR ---
NURSE NOTE: PT REQUESTED RESTORIL 7.5MG FOR SLEEPING. RESTORIL 7.5MG PO ADMINISTERED ORDERED. PT BLAYNE WELL. WILL CONT TO MONITOR.
[2022-11-01] MEDS: INSULIN GLARGINE, 100 UNIT/ML CARTRIDGE SQ SCH (21:44)
--- NOTE | 2022-11-01 23:55 | NUR ---
RN CLINICIAN NOTES PRN NORCO 10/325 MG 1 CAP GIVEN PER PATIENT'S REQUEST AT 2355 FOR GENERALIZED PAIN. WILL ASSESS PAIN IN 1 HOUR.
[2022-11-02] MEDS: *INSULIN REGULAR(HUMULIN R)HUM 100 UNIT/ML VIAL SQ PRN ×2 (00:03→22:12)
[2022-11-02] MEDS: BLOOD SUGAR DIAGNOSTIC 1 EACH STRIP VI SCH ×4 (07:43→22:13)
[2022-11-02 08:00] VITALS: BP 128/69
[2022-11-02] MEDS: PANTOPRAZOLE 40 MG TABLET.DR PO SCH (08:03)
[2022-11-02] MEDS: ASPIRIN 81 MG TAB.CHEW PO SCH (08:21)
[2022-11-02] MEDS: THIAMINE HCL 100 MG TABLET PO SCH (08:22)
[2022-11-02] MEDS: METFORMIN 500 MG TABLET PO SCH ×2 (08:22→16:16)
[2022-11-02] MEDS: ESCITALOPRAM OXALATE (10 MG) 10 MG TABLET PO SCH (08:22)
[2022-11-02] MEDS: GABAPENTIN 300 MG CAPSULE PO SCH ×3 (08:22→16:16)
[2022-11-02] MEDS: FOLIC ACID 1 MG TABLET PO SCH (08:22)
[2022-11-02] MEDS: ISOSORBIDE MONONITRATE (30MG) 30 MG TAB.SR.24H PO SCH (08:23)
[2022-11-02] MEDS: AMLODIPINE BESYLATE 10 MG TABLET PO SCH (08:23)
[2022-11-02] MEDS: LOSARTAN POTASSIUM 50 MG TABLET PO SCH (08:23)
[2022-11-02] MEDS: CARVEDILOL 6.25 MG TABLET PO SCH ×2 (08:24→16:16)
--- NOTE | 2022-11-02 12:28 | NUR ---
RN-NOTES PATIENT BS WAS 175 MG/DL, REFUSED COVERAGE OF 3 UNITS REGULAR INSULIN. STATED" I'M OK IT'S NOT THAT MUCH,NO INSULIN". OFFERED X3
[2022-11-02 16:00] VITALS: BP 129/71
[2022-11-02] MEDS: INSULIN REGULAR, HUMAN 100 UNIT/ML 3 ML VIAL SQ PRN (17:15)
[2022-11-02] MEDS: HYDROCODONE/APAP 10/325MG TABLET PO PRN (17:43)
--- NOTE | 2022-11-02 18:09 | NUR ---
RN-NOTES PATIENT IS VISIBLE IN THE UNIT COMPLIANT WITH P.O MEDICATIONS. EPISODE OF REFUSING INSULIN COVERAGE.PATIENT ABLE TO MAKE NEEDS KNOWN TO THE STAFF AND ATTENDED GROUPS. AMBULATORY STEADY GAIT. ALL NEEDS ATTENDED AND ANTICIPATED. WILL CONT. MONITORING FOR SAFETY AND BEHAVIOR. WILL ENDORSE TO INCOMING SHIFT /NURSE FOR THE CONTINUITY OF CARE.
--- NOTE | 2022-11-02 20:53 | NUR ---
BARBER INSTRUCTOR NOTED RECEIVED PATIENT ON HIS ROOM RESTING IN BED AWAKE . PATIENT IS A/O TIMES 3. ABLE TO MAKE NEEDS KNOWN. NO C/O AT THIS TIME. BREATHING NON-LABORED. NO DISTRESS NOTED. NO C/O PAIN OR DISCOMFORT AT THIS TIME. AMBULATORY AND BRP.DENIES NO SI/HI AT THIS TIME. PATIENT IS COOPERATIVE AND MED COMPLIANT . ALL SAFETY MEASURES IN PLACE. BED LOCKED IN THE LOWEST POSITION. TABLE IN EASY REACH. SIDE RAILS UP TIMES 2. WILL CONTINUE TO MONITOR FOR EVERY 15 MINUTES FOR SAFETY AND BEHAVIOR
[2022-11-02] MEDS: OLANZAPINE 5 MG TABLET PO SCH (21:20)
[2022-11-02] MEDS: TEMAZEPAM 7.5 MG CAPSULE PO PRN (21:32)
--- NOTE | 2022-11-02 21:42 | NUR ---
NURSE NOTE: PT REQUESTED RESTORIL 7.5MG FOR SLEEPING. RESTORIL 7.5MG PO ADMINISTERED ORDERED. PT BLAYNE WELL. WILL CONT TO MONITOR.
[2022-11-02] MEDS: INSULIN GLARGINE, 100 UNIT/ML CARTRIDGE SQ SCH (22:09)
[2022-11-03] MEDS: BLOOD SUGAR DIAGNOSTIC 1 EACH STRIP VI SCH ×4 (07:29→22:40)
[2022-11-03] MEDS: PANTOPRAZOLE 40 MG TABLET.DR PO SCH (07:49)
[2022-11-03 08:00] VITALS: BP 150/93
[2022-11-03] MEDS: GABAPENTIN 300 MG CAPSULE PO SCH ×3 (08:02→16:36)
[2022-11-03] MEDS: METFORMIN 500 MG TABLET PO SCH ×2 (08:02→16:36)
[2022-11-03] MEDS: THIAMINE HCL 100 MG TABLET PO SCH (08:02)
[2022-11-03] MEDS: ESCITALOPRAM OXALATE (10 MG) 10 MG TABLET PO SCH (08:03)
[2022-11-03] MEDS: LOSARTAN POTASSIUM 50 MG TABLET PO SCH (08:03)
[2022-11-03] MEDS: ASPIRIN 81 MG TAB.CHEW PO SCH (08:03)
[2022-11-03] MEDS: FOLIC ACID 1 MG TABLET PO SCH (08:03)
[2022-11-03] MEDS: ISOSORBIDE MONONITRATE (30MG) 30 MG TAB.SR.24H PO SCH (08:03)
[2022-11-03] MEDS: AMLODIPINE BESYLATE 10 MG TABLET PO SCH (08:03)
[2022-11-03] MEDS: CARVEDILOL 6.25 MG TABLET PO SCH ×2 (08:04→16:37)
[2022-11-03] MEDS: INSULIN REGULAR, HUMAN 100 UNIT/ML 3 ML VIAL SQ PRN ×3 (08:06→17:21)
[2022-11-03] MEDS: HYDROCODONE/APAP 10/325MG TABLET PO PRN (13:01)
[2022-11-03 16:00] VITALS: BP 156/83
--- NOTE | 2022-11-03 19:58 | NUR ---
CREAM MAKER NOTED RECEIVED PATIENT ON HIS ROOM RESTING IN BED AWAKE . PATIENT IS A/O X 3. ABLE TO MAKE NEEDS KNOWN. NO C/O AT THIS TIME. BREATHING NON-LABORED. NO DISTRESS NOTED. NO C/O PAIN OR DISCOMFORT AT THIS TIME. AMBULATORY AND BRP.DENIES NO SI/HI AT THIS TIME. PATIENT IS COOPERATIVE AND MED COMPLIANT . ALL SAFETY MEASURES IN PLACE. BED LOCKED IN THE LOWEST POSITION. TABLE IN EASY REACH. SIDE RAILS UP TIMES 2. WILL CONTINUE TO MONITOR FOR EVERY 15 MINUTES FOR SAFETY AND BEHAVIOR
[2022-11-03] MEDS ORDERED: VITAMINS A AND D 56.7 GM TUBE TP PRN (20:00)
[2022-11-03 20:48] VITALS: BP 159/89
[2022-11-03] MEDS: OLANZAPINE 5 MG TABLET PO SCH (21:09)
[2022-11-03] MEDS: TEMAZEPAM 7.5 MG CAPSULE PO PRN (21:10)
--- NOTE | 2022-11-03 21:11 | NUR ---
NURSE NOTE: PT REQUESTED RESTORIL 7.5MG FOR SLEEPING. RESTORIL 7.5MG PO ADMINISTERED ORDERED. PT BLAYNE WELL. WILL CONT TO MONITOR.
[2022-11-03] MEDS: INSULIN GLARGINE, 100 UNIT/ML CARTRIDGE SQ SCH (21:28)
[2022-11-03] MEDS: *INSULIN REGULAR(HUMULIN R)HUM 100 UNIT/ML VIAL SQ PRN (21:30)
[2022-11-03] MEDS: LORAZEPAM 0.5 MG TABLET PO PRN (23:35)
--- NOTE | 2022-11-03 23:37 | NUR ---
NOTE: PATIENT REQUESTED ATIVAN 0.5MG PO FOR ANXIETY.ADMINISTERED ATIVAN 0.5MG PRN PO.WILL CONTINUE TO MONITOR
[2022-11-04] MEDS: BLOOD SUGAR DIAGNOSTIC 1 EACH STRIP VI SCH ×4 (07:30→21:50)
[2022-11-04 08:00] VITALS: BP 158/91
[2022-11-04] MEDS: LOSARTAN POTASSIUM 50 MG TABLET PO SCH (09:17)
[2022-11-04] MEDS: ASPIRIN 81 MG TAB.CHEW PO SCH (09:17)
[2022-11-04] MEDS: FOLIC ACID 1 MG TABLET PO SCH (09:17)
[2022-11-04] MEDS: ISOSORBIDE MONONITRATE (30MG) 30 MG TAB.SR.24H PO SCH (09:17)
[2022-11-04] MEDS: THIAMINE HCL 100 MG TABLET PO SCH (09:18)
[2022-11-04] MEDS: AMLODIPINE BESYLATE 10 MG TABLET PO SCH (09:18)
[2022-11-04] MEDS: GABAPENTIN 300 MG CAPSULE PO SCH ×3 (09:18→17:05)
[2022-11-04] MEDS: METFORMIN 500 MG TABLET PO SCH ×2 (09:18→17:05)
[2022-11-04] MEDS: ESCITALOPRAM OXALATE (10 MG) 10 MG TABLET PO SCH (09:18)
[2022-11-04] MEDS: CARVEDILOL 6.25 MG TABLET PO SCH ×2 (09:18→17:06)
[2022-11-04] MEDS: CLOTRIMAZOLE 1% 15 GM TUBE TP SCH ×2 (09:20→17:07)
[2022-11-04] MEDS: PANTOPRAZOLE 40 MG TABLET.DR PO SCH (09:24)
[2022-11-04] MEDS: HYDROCODONE/APAP 10/325MG TABLET PO PRN (10:43)
[2022-11-04] MEDS: ACETAMINOPHEN 325 MG TABLET PO PRN (12:55)
[2022-11-04] MEDS: INSULIN REGULAR, HUMAN 100 UNIT/ML 3 ML VIAL SQ PRN ×2 (13:06→17:44)
[2022-11-04 16:00] VITALS: BP 131/75
[2022-11-04] MEDS: LORAZEPAM 0.5 MG TABLET PO PRN (19:13)
--- NOTE | 2022-11-04 19:27 | NUR ---
NURSE NOTE PATIENT EXPRESSED SOB AND AGITATION. ELEVATED HOB HIGH FOWLERS POSITIONS, VITALS BP134/58, P 80, O2 99% . PATIENT EXPRESSED HAVING TOO MUCH FLUID AND FEELING FLUID BUILD UP. RT WAS CALLED, NOT INTERVENTION BY RT. MAYBE POSSIBLE ANXIETY EPISODE. DR. BRICE WAS NOTIFIED. NO NEW ORDERS. PATIENT WAS GIVEN PRN ATIVAN. PATIENT IS NOW IN ACTIVITY ROOM, STATING HE IS FEELING BETTER.
[2022-11-04 20:13] VITALS: BP 134/58
[2022-11-04] MEDS: BENZONATATE 100 MG CAPSULE PO PRN (20:13)
--- NOTE | 2022-11-04 20:13 | NUR ---
RN NOTE PT COMPLAINING OF COUGH. ADMINISTERED BENZONATATE FOR COUGH ORDERED. ALL NEEDS MET AT THIS TIME.
[2022-11-04] MEDS: OLANZAPINE 5 MG TABLET PO SCH (21:49)
[2022-11-04] MEDS: *INSULIN REGULAR(HUMULIN R)HUM 100 UNIT/ML VIAL SQ PRN (21:50)
[2022-11-04] MEDS: INSULIN GLARGINE, 100 UNIT/ML CARTRIDGE SQ SCH (21:51)
[2022-11-04] MEDS: TEMAZEPAM 7.5 MG CAPSULE PO PRN (22:02)
--- NOTE | 2022-11-04 22:03 | NUR ---
RN NOTE PT REQUESTED SLEEPING PILL. ADMINISTERED RESTORIL 7.5 MG FOR INSOMNIA. ALL NEEDS MET AT THIS TIME.
--- NOTE | 2022-11-04 22:08 | NUR ---
RN NOTE PT STATED HE HAS A HISTORY OF CHF BUT IS NOT CURRENTLY TAKING ANY MEDICATION. INFORMED INCOME TAX RETURN PREPARER DONNA SINCE PATIENT IS SHOWING MILD SIGNS OF CHF. VITALS STABLE AT THIS TIME. ADINA THOMPSON ORDERED BNP IN THE MORNING. ORDER NOTED AND CARRIED OUT. CHARGE NURSE BLANCA ANGEL.
[2022-11-04] MEDS: MENTHOL/CETYLPYRD (CEPACOL) 1 LOZ LOZENGE PO PRN (23:28)
--- NOTE | 2022-11-04 23:29 | NUR ---
RN NOTE PT COMPLAINING OF SORE THROAT DUE TO COUGHING. ADMINISTERED CEPACOL ORDERED. ALL NEEDS MET AT THIS TIME.
[2022-11-05] MEDS: BLOOD SUGAR DIAGNOSTIC 1 EACH STRIP VI SCH ×4 (07:30→21:40)
[2022-11-05] MEDS: PANTOPRAZOLE 40 MG TABLET.DR PO SCH (07:41)
[2022-11-05 08:00] VITALS: BP 158/77
[2022-11-05] MEDS: ASPIRIN 81 MG TAB.CHEW PO SCH (08:43)
[2022-11-05] MEDS: ISOSORBIDE MONONITRATE (30MG) 30 MG TAB.SR.24H PO SCH (08:43)
[2022-11-05] MEDS: GABAPENTIN 300 MG CAPSULE PO SCH ×3 (08:43→17:28)
[2022-11-05] MEDS: THIAMINE HCL 100 MG TABLET PO SCH (08:43)
[2022-11-05] MEDS: ESCITALOPRAM OXALATE (10 MG) 10 MG TABLET PO SCH (08:44)
[2022-11-05] MEDS: CARVEDILOL 6.25 MG TABLET PO SCH ×2 (08:44→17:28)
[2022-11-05] MEDS: METFORMIN 500 MG TABLET PO SCH ×2 (08:44→17:28)
[2022-11-05] MEDS: AMLODIPINE BESYLATE 10 MG TABLET PO SCH (08:44)
[2022-11-05] MEDS: FOLIC ACID 1 MG TABLET PO SCH (08:44)
[2022-11-05] MEDS: LOSARTAN POTASSIUM 50 MG TABLET PO SCH (08:45)
[2022-11-05] MEDS: CLOTRIMAZOLE 1% 15 GM TUBE TP SCH ×2 (08:51→17:00)
[2022-11-05] MEDS: BENZONATATE 100 MG CAPSULE PO PRN (09:14)
--- NOTE | 2022-11-05 09:15 | NUR ---
RN- NOTES TESSALON PERLE ADMINISTERED DUE TO PATIENT COMPLAINTS OF COUGH.
[2022-11-05] MEDS: MENTHOL/CETYLPYRD (CEPACOL) 1 LOZ LOZENGE PO PRN (10:30)
--- NOTE | 2022-11-05 10:30 | NUR ---
Court Hearing: Patient's court hearing for 2910 was today and it was upheld for GD.
--- NOTE | 2022-11-05 10:30 | NUR ---
Court Notification: Patient does not have any supportive contact to notify of 3040 hearing.
--- NOTE | 2022-11-05 10:31 | NUR ---
RN- NOTES CEPACOL LOZENGE ADMINISTERED DUE TO PATIENT CONTINUED COUGHING.
[2022-11-05] MEDS: ACETAMINOPHEN 325 MG TABLET PO PRN (11:34)
[2022-11-05] MEDS: INSULIN REGULAR, HUMAN 100 UNIT/ML 3 ML VIAL SQ PRN ×3 (11:35→21:44)
--- NOTE | 2022-11-05 11:36 | NUR ---
RN- NOTES TYLENOL ADMINISTERED DUE TO PATIENT COMPLAINTS OF HEADACHE.
[2022-11-05] MEDS: GUAIFENESIN/D-METHORPHAN HB 5 ML UDC PO PRN ×2 (13:06→20:20)
--- NOTE | 2022-11-05 13:06 | NUR ---
RN- NOTES ROBITUSSIN ADMINISTERED DUE TO PATIENT'S CONTINUED COUGH AND SORE THROAT.
[2022-11-05 16:00] VITALS: BP 149/76
--- NOTE | 2022-11-05 19:21 | NUR ---
RN- CLOSING NOTES PATIENT AWAKE, RESTING IN BED, BREATHING EVEN AND NON LABORED WITH NO S/S OF DISTRESS. PATIENT IS COOPERATIVE, GUARDED, ANXIOUS, ISOLATIVE, AND RESTLESS. PATIENT IS COMPLAINING OF COUGH, MD AWARE, PRN MEDICATIONS GIVEN. PATIENT IS MEDICATION COMPLIANT. DENIES SI/HI AT THIS TIME. WILL CONTINUE TO MONITOR Q 15 MINUTES FOR SAFETY AND BEHAVIOR.
[2022-11-05 20:00] VITALS: BP 161/81
[2022-11-05] MEDS: CLONIDINE HCL 0.1 MG TABLET PO PRN (20:20)
--- NOTE | 2022-11-05 20:20 | NUR ---
RN NOTE PT'S BP IS 161/81. PRN MEDICATION, CATAPRES 0.1 MG, ADMINISTERED PER MD ORDER.
--- NOTE | 2022-11-05 20:20 | NUR ---
RN NOTE PT COUGHS AND REQUESTED FOR COUGH SYRUP. PRN MEDICATION, ROBITUSSIN 5 ML, ADMINISTERED PER MD ORDER.
[2022-11-05] MEDS: HYDROCODONE/APAP 10/325MG TABLET PO PRN (21:20)
--- NOTE | 2022-11-05 21:20 | NUR ---
RN NOTE PT STATED THAT HE WAS HAVING PAIN AT HIS ABD. HIS PAIN LEVEL IS 8/10 ON A 0-10 PAIN SCALE. PRN MEDICATION, NORCO 10-325, ADMINISTERED PER MD ORDER.
[2022-11-05] MEDS: OLANZAPINE 5 MG TABLET PO SCH (21:21)
[2022-11-05] MEDS: TEMAZEPAM 7.5 MG CAPSULE PO PRN (21:27)
--- NOTE | 2022-11-05 21:30 | NUR ---
RN NOTE PT REQUESTED FOR SLEEPING PILL. PRN MEDICATION, RESTORIL 7.5 MG, ADMINISTERED PER MD ORDER.
[2022-11-05] MEDS: INSULIN GLARGINE, 100 UNIT/ML CARTRIDGE SQ SCH (21:42)
[2022-11-06] MEDS: GUAIFENESIN/D-METHORPHAN HB 5 ML UDC PO PRN ×3 (04:23→17:54)
--- NOTE | 2022-11-06 04:24 | NUR ---
RN NOTE PT COUGHS AND REQUESTED FOR COUGH SYRUP. PRN MEDICATION, ROBITUSSIN 5 ML, ADMINISTERED PER MD ORDER.
[2022-11-06] MEDS: BLOOD SUGAR DIAGNOSTIC 1 EACH STRIP VI SCH ×4 (07:57→21:09)
--- NOTE | 2022-11-06 07:58 | NUR ---
RN- NOTES PATIENT REFUSED INSULIN COVERAGE, BLOOD GLUCOSE NOTED AT 141, EDUCATION AND ENCOURAGEMENT GIVEN X3, PATIENT CONTINUES TO REFUSE.
[2022-11-06 08:00] VITALS: BP 145/93
[2022-11-06] MEDS: PANTOPRAZOLE 40 MG TABLET.DR PO SCH (08:01)
[2022-11-06] MEDS: METFORMIN 500 MG TABLET PO SCH ×2 (09:00→16:09)
[2022-11-06] MEDS: THIAMINE HCL 100 MG TABLET PO SCH (09:22)
[2022-11-06] MEDS: LOSARTAN POTASSIUM 50 MG TABLET PO SCH (09:22)
[2022-11-06] MEDS: AMLODIPINE BESYLATE 10 MG TABLET PO SCH (09:23)
[2022-11-06] MEDS: FOLIC ACID 1 MG TABLET PO SCH (09:23)
[2022-11-06] MEDS: ASPIRIN 81 MG TAB.CHEW PO SCH (09:23)
[2022-11-06] MEDS: ISOSORBIDE MONONITRATE (30MG) 30 MG TAB.SR.24H PO SCH (09:23)
[2022-11-06] MEDS: ESCITALOPRAM OXALATE (10 MG) 10 MG TABLET PO SCH (09:23)
[2022-11-06] MEDS: CARVEDILOL 6.25 MG TABLET PO SCH ×2 (09:23→16:10)
[2022-11-06] MEDS: CLOTRIMAZOLE 1% 15 GM TUBE TP SCH ×2 (09:24→17:00)
[2022-11-06] MEDS: GABAPENTIN 300 MG CAPSULE PO SCH ×3 (09:30→16:09)
--- NOTE | 2022-11-06 09:57 | NUR ---
RN- NOTES METFORMIN 1000MG HELD DUE TO MEDICATION NOT AVAILABLE, PHARMACY NOTIFIED AND AWARE.
[2022-11-06] MEDS: METFORMIN 500 MG TABLET PO ONE ×2 (10:52→10:59)
--- NOTE | 2022-11-06 10:53 | NUR ---
RN- NOTES METFORMIN 1000MG HELD DUE TO MEDICATION NOT AVAILABLE, PHARMACY NOTIFIED AND AWARE. Addendum: 11/06/22 at 1059 by BERTRAND BOBBY RN MEDICATION OBTAINED AND ADMINISTERED.
[2022-11-06] MEDS: INSULIN REGULAR, HUMAN 100 UNIT/ML 3 ML VIAL SQ PRN ×2 (12:34→16:52)
[2022-11-06 16:05] VITALS: BP 135/72
--- NOTE | 2022-11-06 17:54 | NUR ---
RN-CO: GUAIFENESIN5 ML GIVEN FOR C/O MILD COUGH.
--- NOTE | 2022-11-06 20:00 | NUR ---
RN : - RECEIVED PATIENT IN THE ACTIVITY ROOM WATCHING TV. PATIENT IS A/O TIMES 3. ABLE TO MAKE NEEDS KNOWN. NO PAIN NOTED. BREATHING NON-LABORED. NO DISTRESS NOTED. NO C/O PAIN OR DISCOMFORT AT THIS TIME. AMBULATORY AND BRP.DENIES NO SI/HI AT THIS TIME. PATIENT IS COOPERATIVE AND MED COMPLIANT.ALL SAFETY MEASURES IN PLACES. WILL CONTINUE TO MONITOR FOR EVERY 15 MINUTES FOR SAFETY AND BEHAVIOR.
[2022-11-06 20:57] VITALS: BP 154/87
[2022-11-06] MEDS: INSULIN GLARGINE, 100 UNIT/ML CARTRIDGE SQ SCH (21:11)
[2022-11-06] MEDS: OLANZAPINE 5 MG TABLET PO SCH (21:12)
[2022-11-06] MEDS: TEMAZEPAM 7.5 MG CAPSULE PO PRN (21:13)
--- NOTE | 2022-11-06 21:13 | NUR ---
RN NOTE :- PT REQUESTED FOR SLEEPING PILL. PRN MEDICATION, RESTORIL 7.5 MG PO, ADMINISTERED PER MD ORDER.
--- NOTE | 2022-11-07 06:21 | NUR ---
RN NOTE :- PATIENT ASLEEP, RESTING IN BED, BREATHING EVEN AND NON LABORED WITH NO S/S OF DISTRESS. COVID TEST DONE . PATIENT IS COOPERATIVE, GUARDED, ANXIOUS, ISOLATIVE, AND RESTLESS. PATIENT IS MEDICATION COMPLIANT. DENIES SI/HI AT THIS TIME. BED IS LOWER POSITION AND WILL CONTINUE TO MONITOR Q 15 MINUTES FOR SAFETY AND BEHAVIOR.
[2022-11-07] MEDS: BLOOD SUGAR DIAGNOSTIC 1 EACH STRIP VI SCH ×2 (07:30→11:12)
[2022-11-07] MEDS: PANTOPRAZOLE 40 MG TABLET.DR PO SCH (07:51)
[2022-11-07] MEDS: GUAIFENESIN/D-METHORPHAN HB 5 ML UDC PO PRN (07:52)
[2022-11-07 08:00] VITALS: BP 149/79
--- NOTE | 2022-11-07 08:11 | NUR ---
Discharge Note: Patient will be discharged to [facility] to [facility] [address] [place] [address]; ([phone]) via Ambulance transportation at 2PM. [employer] spoke with Micheline, Manager Plan at [facility] ([phone]) who stated patient will be accepted at facility today. Patient is alert and oriented x2. Patient denies any suicidal or homicidal ideations. Patient is aware and agreeable with discharge plans. Patient does not have any family members at this time. Patient will continue to follow-up with (psychiatrist) Dr. Cummins [address] [facility] [address], [place] [address]; ([phone]) and (beer cooler) Dr. Hunter [address] [facility] [address], [place] [address]; ([phone]). Patient presents with euthymic mood and congruent affect. Patient refused to sign the homeless waiver upon discharge and a copy was placed in the chart. Homeless resources were provided and include [address] information line for shelters and homeless resources. A copy of all resources given to patient was also placed in the chart.
[2022-11-07] MEDS: ASPIRIN 81 MG TAB.CHEW PO SCH (08:27)
[2022-11-07] MEDS: CARVEDILOL 6.25 MG TABLET PO SCH (08:27)
[2022-11-07] MEDS: METFORMIN 500 MG TABLET PO SCH (08:27)
[2022-11-07] MEDS: ESCITALOPRAM OXALATE (10 MG) 10 MG TABLET PO SCH (08:27)
[2022-11-07] MEDS: GABAPENTIN 300 MG CAPSULE PO SCH ×2 (08:28→12:04)
[2022-11-07] MEDS: AMLODIPINE BESYLATE 10 MG TABLET PO SCH (08:28)
[2022-11-07] MEDS: LOSARTAN POTASSIUM 50 MG TABLET PO SCH (08:28)
[2022-11-07] MEDS: THIAMINE HCL 100 MG TABLET PO SCH (08:28)
[2022-11-07] MEDS: FOLIC ACID 1 MG TABLET PO SCH (08:28)
[2022-11-07 08:29] VITALS: BP 149/79
[2022-11-07] MEDS: ISOSORBIDE MONONITRATE (30MG) 30 MG TAB.SR.24H PO SCH (08:29)
[2022-11-07] MEDS: CLOTRIMAZOLE 1% 15 GM TUBE TP SCH (09:00)
--- NOTE | 2022-11-07 09:18 | NUR ---
RN-CO : PATIENT ATE HIS BREAKFAST AND TOOK ALL HIS MEDICATIONS. HE REMAINS CALM AND COOPERATIVE TO CARE. HE PARTICIPATES IN GROUP ACTIVITIES. HE DENIED SUICIDAL, HOMICIDAL AND COMMAND HALLUCINATIONS. HE STATED , HE DON'T HEAR VOICES. NO ACUTE DISTRESS NOTED. DR MARION ORDERED TO DISCONTINUE HOLD AND DICHARGE PATIENT TO [facility], NOTED. PT IS AWARE OF HIS DISCHARGE AND AGGREABLE TO THE PLACE WHERE HE IS GOING.
--- NOTE | 2022-11-07 10:58 | NUR ---
RN-CO: DR Thakkar medically cleared the patient for discharge and ordered to continue his current medications. Discharge papers were discussed to the patient , he verbalized understanding and signed all discharge papers. Report will be given to receiving RN in the facility .
[2022-11-07] MEDS: INSULIN REGULAR, HUMAN 100 UNIT/ML 3 ML VIAL SQ PRN (11:14)
--- NOTE | 2022-11-07 11:52 | NUR ---
RN-CO: Report was given to " Altaf" DARRIUS. All belongings will be given back to the patient.
--- NOTE | 2022-11-07 14:32 | NUR ---
RN-CO: Patient was picked up by ambulance, all belongings was given back to him.
== END 2022-11-07 14:34 | DRG 885 ==
LOC: ER 06:56 → GPS 14:58
PROVIDERS: ADMIT Psychiatry & Neurology Psychosomatic Medicine; ATTEND Nurse Practitioner Acute Care
DX: F25.0 Schizoaffective disorder, bipolar type (principal); I10 Essential (primary) hypertension; E11.9 Type 2 diabetes mellitus without complications; Z79.4 Long term (current) use of insulin; Z79.82 Long term (current) use of aspirin; Z91.010 Allergy to peanuts; Z98.1 Arthrodesis status; Z20.822 Contact with and (suspected) exposure to COVID-19; F32.9 Major depressive disorder, single episode, unspecified; F29 Unspecified psychosis not due to a substance or known physiological condition; Z73.6 Limitation of activities due to disability; F12.10 Cannabis abuse, uncomplicated; F13.10 Sedative, hypnotic or anxiolytic abuse, uncomplicated; Z79.899 Other long term (current) drug therapy; F03.90 Unspecified dementia, unspecified severity, without behavioral disturbance, psychotic disturbance, mood disturbance, and anxiety; Z59.00 Homelessness unspecified
CPT/HCPCS: 36415; 80048-TC; 80076-TC; 81001; 82565-TC; 82962-TC; 83880; 85025-TC; 87081-TC; C9803; G0480; J1815

== ENCOUNTER 2024-10-20 07:34 | Inpatient (IN) | payer MEDICARE, OTHER ==
[~2024-10-20] VITALS: Ht 182.9 cm; Wt 85.3 kg
[~2024-10-20 07:34] MED LIST changes: -ASPI-1169 PO; +ASPI-1420 PO; -ATOR20TA PO; +BUPR300T52 PO; +GABA300C PO; -GABA800T11 PO; +GLIP10TA11 PO; +INSU100V11 SQ; -INSU100V3 SQ; -INSU10VI3 SQ; -ISOS20TA8 PO; +ISOS60TA72 PO; +METF-442 PO; +MIRT-90 PO; +RISP0.2515 PO; -RISP1TAB7 PO
[2024-10-20 07:50] VITALS: O2SAT 97
[2024-10-20] MEDS ORDERED: MAGNESIUM HYDROXIDE 30 ML UDC PO PRN (09:30)
[2024-10-20] MEDS ORDERED: CARV12.52 PO (09:31)
[2024-10-20] MEDS ORDERED: GABA600T12 PO (09:31)
[2024-10-20] MEDS ORDERED: TRAZ-182 PO (09:31)
[2024-10-20] MEDS ORDERED: HYDR-3980 PO (09:31)
[2024-10-20] MEDS ORDERED: ARIP20TA4 PO (09:31)
[2024-10-20] MEDS ORDERED: ATOR20TA PO (09:31)
[2024-10-20] MEDS ORDERED: METO25TA4 PO (09:31)
[2024-10-20] MEDS ORDERED: EMPA10TA PO (09:31)
[2024-10-20] MEDS ORDERED: ALPR1TAB7 PO (09:31)
[2024-10-20] MEDS ORDERED: DEXTROSE 50%-WATER 50 ML DISP.SYRIN IV PRN (10:00)
[2024-10-20] MEDS: BLOOD SUGAR DIAGNOSTIC 1 EACH STRIP IN ONE (11:13)
[2024-10-20] MEDS: BLOOD SUGAR DIAGNOSTIC 1 EACH STRIP VI SCH (11:14)
[2024-10-20] MEDS: INSULIN REGULAR, HUMAN 100 UNIT/ML 3 ML VIAL SQ PRN (11:55)
[2024-10-20 15:56] VITALS: BP 133/101; TEMP 98.6; O2SAT 98
[2024-10-20] MEDS: METFORMIN 500 MG TABLET PO SCH (16:51)
[2024-10-20] MEDS: CARVEDILOL 12.5 MG TABLET PO SCH (16:52)
[2024-10-20] MEDS: ACETAMINOPHEN 325 MG TABLET PO PRN (19:34)
[2024-10-20 19:53] VITALS: BP 151/91; TEMP 98; O2SAT 98
[2024-10-20] MEDS: HYDROCODONE/APAP 5/325MG TABLET PO ONE (20:42)
[2024-10-20] MEDS: risperiDONE 1 MG TABLET PO SCH (21:00)
[2024-10-20] MEDS ORDERED: risperiDONE 1 MG TABLET PO PRN (21:00)
[2024-10-20] MEDS: LITHIUM CARBONATE 150 MG CAPSULE PO SCH (21:00)
[2024-10-20] MEDS: ATORVASTATIN 10 MG TABLET PO SCH (21:09)
[2024-10-20] MEDS: TRAZODONE 50 MG TABLET PO SCH (21:10)
[2024-10-21 08:00] VITALS: BP 153/91; TEMP 98.6; O2SAT 98
[2024-10-21] MEDS: ASPIRIN EC 81 MG TABLET.DR PO SCH (08:32)
[2024-10-21] MEDS: METOPROLOL SUCCINATE 25 MG TAB.SR.24H PO SCH (08:33)
[2024-10-21] MEDS: glipiZIDE 10 MG TABLET PO SCH (08:35)
[2024-10-21] MEDS: EMPAGLIFLOZIN 10 MG TABLET PO SCH (08:35)
[2024-10-21] MEDS: AMLODIPINE BESYLATE 10 MG TABLET PO SCH (08:36)
[2024-10-21] MEDS: HYDROCODONE/APAP 5/325MG TABLET PO PRN (09:51)
[2024-10-21] MEDS: CLOTRIMAZOLE 1% 15 GM TUBE TP SCH (11:43)
[2024-10-21 15:46] VITALS: BP 141/91; TEMP 98.7; O2SAT 96
[2024-10-21 20:58] VITALS: BP 141/98; TEMP 98.4; O2SAT 99
[2024-10-21] MEDS: GABAPENTIN 300 MG CAPSULE PO SCH (21:21)
[2024-10-21] MEDS: *INSULIN REGULAR(HUMULIN R)HUM 100 UNIT/ML VIAL SQ PRN (22:19)
[2024-10-22 08:00] VITALS: BP 135/70; TEMP 97.5; O2SAT 97
[2024-10-22 16:00] VITALS: BP 128/76; TEMP 97.9; O2SAT 99
[2024-10-22 20:00] VITALS: BP 131/82; TEMP 98.1; O2SAT 100
[2024-10-22] MEDS: risperiDONE 1 MG TABLET PO SCH (21:13)
[2024-10-23 08:00] VITALS: BP 142/77; TEMP 98; O2SAT 99
[2024-10-23] MEDS: risperiDONE 1 MG TABLET PO SCH (09:40)
[2024-10-23 16:00] VITALS: BP 134/82; TEMP 98.2; O2SAT 98
[2024-10-23 20:00] VITALS: BP 149/88; TEMP 98.1; O2SAT 100
[2024-10-23] MEDS: TRAZODONE 50 MG TABLET PO SCH (21:27)
[2024-10-23] MEDS: MIRTAZAPINE 15 MG TABLET PO SCH (22:00)
[2024-10-24 08:00] VITALS: BP 109/58; TEMP 98; O2SAT 100
[2024-10-24] MEDS: HYDROCODONE/APAP 10/325MG TABLET PO PRN (13:31)
[2024-10-24 16:00] VITALS: BP 133/79; TEMP 97.8; O2SAT 99
[2024-10-24 20:00] VITALS: BP 151/90; TEMP 97.9; O2SAT 97
[2024-10-25 08:00] VITALS: BP 129/85; TEMP 97.4; O2SAT 100
[2024-10-25 16:00] VITALS: BP 135/64; TEMP 97.5; O2SAT 100
[2024-10-25 20:37] VITALS: BP 154/90; TEMP 97.4; O2SAT 100
[2024-10-26 08:24] VITALS: BP 149/91; TEMP 98; O2SAT 97
[2024-10-26 16:54] VITALS: BP 132/76; TEMP 98.6; O2SAT 97
[2024-10-26 20:48] VITALS: BP 140/87; TEMP 98.1; O2SAT 98
[2024-10-27 08:00] VITALS: BP 115/62; TEMP 98.7; O2SAT 100
[2024-10-27] MEDS: risperiDONE 1 MG TABLET PO SCH ×2 (10:11→21:16)
[2024-10-27 16:00] VITALS: BP 121/83; TEMP 98.7; O2SAT 99
[2024-10-27 19:34] VITALS: BP 130/79; TEMP 98.7; O2SAT 100
[2024-10-28 08:00] VITALS: BP 117/63; TEMP 98.6; O2SAT 100
[2024-10-28 16:00] VITALS: BP 143/81; TEMP 98.7; O2SAT 100
[2024-10-28 20:00] VITALS: BP 129/82; TEMP 98.7; O2SAT 97
[2024-10-29] MEDS: MAG HYDROX/AL HYDROX/SIMETH 30 ML UDC PO PRN (00:37)
[2024-10-29 08:00] VITALS: BP 141/75; TEMP 98; O2SAT 97
[2024-10-29 09:22] VITALS: BP 141/75
== END 2024-10-29 10:50 | disposition home or self-care (01) | DRG 885 ==
LOC: ER 07:44 → GPS 08:39
PROVIDERS: ADMIT Psychiatry & Neurology Psychiatry; ATTEND Nurse Practitioner Acute Care
DX: F29 Unspecified psychosis not due to a substance or known physiological condition (principal); E11.65 Type 2 diabetes mellitus with hyperglycemia; I11.0 Hypertensive heart disease with heart failure; J15.9 Unspecified bacterial pneumonia; Z59.00 Homelessness unspecified; I50.32 Chronic diastolic (congestive) heart failure; G93.40 Encephalopathy, unspecified; F03.92 Unspecified dementia, unspecified severity, with psychotic disturbance; R45.851 Suicidal ideations; F39 Unspecified mood [affective] disorder; F31.89 Other bipolar disorder; F25.9 Schizoaffective disorder, unspecified; F41.9 Anxiety disorder, unspecified; Z79.4 Long term (current) use of insulin; Z79.84 Long term (current) use of oral hypoglycemic drugs; Z79.899 Other long term (current) drug therapy; Z91.010 Allergy to peanuts; Z98.1 Arthrodesis status; F19.10 Other psychoactive substance abuse, uncomplicated; R42 Dizziness and giddiness
CPT/HCPCS: 82962-TC; J1815